=== PATIENT | male | born 1975 | race Caucasian/White ===

== ENCOUNTER 2016-12-28 16:55 | Emergency (ER) | payer MEDICAID ==
[~2016-12-28] VITALS: Ht 172.7 cm; Wt 84.4 kg
[~2016-12-28 16:55] MED LIST: KEPPRA500 MG PO; ZOLOFT50 MG PO
[2016-12-28 17:29] VITALS: BP 115/67
--- NOTE | 2016-12-28 20:32 | NUR ---
PT TAKEN TO OF2
--- NOTE | 2016-12-28 20:51 | NUR ---
41Y/M PATIENT PRESENTS TO ED WITH REQUESTS FOR MEDS REFILL . PT STATES REQUESTING FOR MEDICATION REFILL KEPPRA 500MG PO TID/ ZOLOFT MG PO QD .HX SEIZURE, DEPRESSION.DENIES N/V/D; SKIN IS PINK/WARM/DRY; AAOX4 WITH EVEN AND STEADY GAIT; LUNGS CLEAR BL; HR EVEN AND REGULAR; PT DENIES ANY FEVER, CP, SOB, OR COUGH AT THIS TIME; PATIENT STATES PAIN OF 0/10 AT THIS TIME; VSS; ER MD MADE AWARE OF PT STATUS.
--- NOTE | 2016-12-28 20:54 | NUR ---
Dr. Peña evaluating patient
[2016-12-28 21:06] VITALS: BP 115/67
--- NOTE | 2016-12-28 21:06 | NUR ---
Patient discharged with v/s stable. Written and verbal after care instructions given and explained. Patient alert, oriented and verbalized understanding of instructions. Ambulatory with steady gait. All questions addressed prior to discharge. ID band removed. Patient advised to follow up with PMD. Rx of ZOLOFT 50 MG, KEPRA 500 MG given. Patient educated on indication of medication including possible reaction and side effects. Opportunity to ask questions provided and answered.
== END 2016-12-28 21:06 | disposition home or self-care (01) ==
LOC: MED 16:55
DX: Z76.0 Encounter for issue of repeat prescription (principal); G40.909 Epilepsy, unspecified, not intractable, without status epilepticus; F41.9 Anxiety disorder, unspecified

== ENCOUNTER 2017-05-14 16:59 | Emergency (ER) | payer MEDICAID ==
[~2017-05-14] VITALS: Ht 177.8 cm; Wt 82.6 kg
[~2017-05-14 16:59] MED LIST changes: +KEP500 PO; -KEPPRA500 MG PO; +SERT50TA PO; -ZOLOFT50 MG PO
[2017-05-14 18:38] VITALS: BP 109/76
--- NOTE | 2017-05-14 18:44 | NUR ---
PT TO OVERFLOW.
--- NOTE | 2017-05-14 18:46 | NUR ---
PATIENT PRESENTS TO ED FOR MEDICATION REFILL . PT STATES HE RAN OUT OF HIS ZOLFT AND KEPPRA, AND HAS BEEN UNABLE TO SEE HIS PCP . DENIES N/V/D; SKIN IS PINK/WARM/DRY; AAOX4 WITH EVEN AND STEADY GAIT; LUNGS CLEAR BL; HR EVEN AND REGULAR; PT DENIES ANY FEVER, CP, SOB, OR COUGH AT THIS TIME; PATIENT STATES PAIN OF 0/10 AT THIS TIME; VSS; PATIENT POSITIONED IN OVERFLOW. ER MD MADE AWARE OF PT STATUS.
--- NOTE | 2017-05-14 18:47 | NUR ---
NAKUL Ruelas EVALUATING PT IN OVERFLOW.
[2017-05-14 18:59] VITALS: BP 109/76
--- NOTE | 2017-05-14 19:00 | NUR ---
Patient discharged with v/s stable. Written and verbal after care instructions given and explained. Patient alert, oriented and verbalized understanding of instructions. Ambulatory with steady gait. All questions addressed prior to discharge. ID band removed. Patient advised to follow up with PMD. Rx of ZOLOFT 50MG AND KEPPRA 500MG given. Patient educated on indication of medication including possible reaction and side effects. Opportunity to ask questions provided and answered.
== END 2017-05-14 19:00 | disposition home or self-care (01) ==
LOC: MED 16:59
DX: Z76.0 Encounter for issue of repeat prescription (principal); F41.9 Anxiety disorder, unspecified; F32.9 Major depressive disorder, single episode, unspecified; F17.210 Nicotine dependence, cigarettes, uncomplicated
CPT/HCPCS: 99283

== ENCOUNTER 2018-09-14 23:18 | Emergency (ER) | payer OTHER, MEDICAID ==
[~2018-09-14] VITALS: Ht 175.3 cm; Wt 83.0 kg
[2018-09-14 23:20] VITALS: BP 99/73
--- NOTE | 2018-09-14 23:20 | NUR ---
PT BIBSerjio ALS. TAKEN T BED 5
--- NOTE | 2018-09-14 23:35 | NUR ---
PT BIBA for witnessed siezure. PT is AAO x1, PT only oriented to self. PT is confused, does not no where he is. 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 No fever, RR symmetrical, non-labored. ER MD to see PT. Siezure precautions in place, suction equipment available in room. Will continue to monitor. Med HX: epilepsy
--- NOTE | 2018-09-15 00:09 | NUR ---
Dr. Taylor evaluating patient at bedside.
[2018-09-15] MEDS ORDERED: levETIRAcetam 500 MG TAB PO ONE (00:25)
[2018-09-15 00:59] VITALS: BP 109/59
--- NOTE | 2018-09-15 01:00 | NUR ---
Patient discharged with v/s stable. Written and verbal after care instructions given and explained. Patient verbalized understanding. Ambulatory with steady gait. All questions addressed prior to discharge. Advised to follow up with PMD.
== END 2018-09-15 01:00 | disposition home or self-care (01) ==
LOC: MED 23:18
DX: G40.909 Epilepsy, unspecified, not intractable, without status epilepticus (principal); Z79.899 Other long term (current) drug therapy
CPT/HCPCS: 99283

== ENCOUNTER 2019-01-09 10:45 | Emergency (ER) | payer OTHER, MEDICAID ==
[~2019-01-09] VITALS: Ht 172.7 cm; Wt 83.9 kg
--- NOTE | 2019-01-09 10:46 | NUR ---
PT BIBA BLS TO ER BED 10
--- NOTE | 2019-01-09 10:48 | NUR ---
SEIZURE PADS PLACED ON BED RAILS
--- NOTE | 2019-01-09 10:49 | NUR ---
pt placed on surveillance system monitor/pulse ox
[2019-01-09 10:50] VITALS: BP 119/74
--- NOTE | 2019-01-09 11:02 | NUR ---
BIBA W C/O 3 SEIZURES THIS MORNING. PER [facility], PTS GIRLFRIEND WITNESSED THE SEIZURES AND STATED THEY LASTED ABOUT 30 SECONDS EACH. PT DOES NOT RECALL THE SEIZURE ACTIVITY. PT DENIES FEVER OR RECENT ILLNESS/INJURY. FSBS 99, PT IS A&O X4. SEIZURE PRECAUTIONS IN PLACE.
--- NOTE | 2019-01-09 11:08 | NUR ---
PROVIDE PT WITH URINE CUP AND URINAL
--- NOTE | 2019-01-09 11:59 | NUR ---
urine collected and sent to lab
[2019-01-09 12:36] LABS: ANION GAP 15.7 (8-16); CARBON DIOXIDE 25.3 mmol/L (21-32); CREATININE 0.9 mg/dL (0.7-1.3)
[2019-01-09 12:47] LABS: BARBITURATE, URINE NEGATIVE ng/ml (NEG <=200); BENZODIAZEPINE, URINE NEGATIVE ng/mL (NEG <=200); CANNABINOID, URINE POSITIVE ng/mL (NEG <=50); COCAINE, URINE NEGATIVE ng/mL (NEG <=300); OPIATE, URINE NEGATIVE ng/mL (NEG <=2000); PHENCYCLIDINE SCREEN,URINE NEGATIVE ng/mL (NEG <=25)
[2019-01-09] MEDS ORDERED: NACL 0.9% 1,000 ML IV ONE (12:50)
[2019-01-09 13:19] VITALS: BP 125/72
--- NOTE | 2019-01-09 13:19 | NUR ---
Patient discharged with v/s stable. Written and verbal after care instructions given and explained. Patient alert, oriented and verbalized understanding of instructions. Ambulatory with steady gait. All questions addressed prior to discharge. ID band removed. Patient advised to follow up with PMD. Opportunity to ask questions provided and answered.
== END 2019-01-09 13:19 | disposition home or self-care (01) ==
LOC: MED 10:45
DX: G40.909 Epilepsy, unspecified, not intractable, without status epilepticus (principal); Z98.890 Other specified postprocedural states; Z79.899 Other long term (current) drug therapy; Z91.030 Bee allergy status
CPT/HCPCS: 36415; 80048; 80305; 99283; G0482; J7030

== ENCOUNTER 2019-03-24 22:03 | Emergency (ER) | payer OTHER, MEDICAID ==
[~2019-03-24] VITALS: Ht 172.7 cm; Wt 81.6 kg
[2019-03-24 22:05] VITALS: BP 132/82
--- NOTE | 2019-03-24 22:44 | NUR ---
44/M BIBA FROM [facility]. PER EMS, PT S/P SEIZURE 2 HRS AGO AT [facility]. PT WITH HEAD TRAUMA, 2CM LACERATION NOTED ON L SIDE OF HEAD, MINIMAL BLEEDING CONTROLLED BY PRESSURE DRESSING. PT DENIES N/V. NO ORAL/TONGUE TRAUMA. PT AOX4, GCS 15, PERRLA [place], SKIN NORMAL WARM AND DRY, RR EVEN AND UNLABORED. LUNG SOUNDS CLEAR BL. ALL EXTREMITIES +2 STRENGTH. HX SEIZURE, DEPRESSION RX KEPPRA 500MG BID (COMPLIANT), ZOLOFT
--- NOTE | 2019-03-24 22:44 | NUR ---
PT TAKEN TO BED 4
--- NOTE | 2019-03-24 23:14 | NUR ---
2CM LACERATION ON L SIDE OF HEAD CLEANSED, IRRIGATED, PRESSURE DRESSING REAPPLIED WITH GAUZE AND KERLIX.
--- NOTE | 2019-03-25 00:15 | NUR ---
DR DELEON AT BEDSIDE FOR MSE
[2019-03-25] MEDS ORDERED: LIDOCAINE/PRILOCAINE 2.5% 5 GM TUBE TP ONE (00:20)
--- NOTE | 2019-03-25 00:27 | NUR ---
EMLA CREAM APPLIED AND LEFT IN PLACE FOR NUMBING. 2CM LACERATION ON L SIDE OF HEAD CLEANSED, IRRIGATED, PRESSURE DRESSING REAPPLIED WITH GAUZE AND KERLIX.
[2019-03-25 00:32] VITALS: BP 117/75
--- NOTE | 2019-03-25 01:30 | NUR ---
PT WITH AN EPISODE OF 10 SECOND TONIC-CLONIC SEIZURE. NO INJURY/COMPLICATIONS NOTED. PT WITH BRIEF POST-ICTAL STATE BEFORE RETURNING TO BASELINE. PT AWAKE AND ALERT. VSS, PLACED ON O2 2L NC. DR DELEON MADE AWARE, PER NAKUL MCBRIDE NO NEED FOR ATIVAN AFTER SEIZURE, ORDERS PENDING. Addendum: 03/25/19 at 0144 by [email or web address] PT REMAINS IN MILD POST-ICTAL STATE, AOX1 (NAME)HITESH, ACTING APPROPRIATE, FOLLOWS DIRECTIONS.
[2019-03-25] MEDS ORDERED: LORazepam 2 MG/ML VIAL ONE (01:39)
[2019-03-25] MEDS ORDERED: levETIRAcetam 500 MG TAB PO ONE (01:40)
--- NOTE | 2019-03-25 02:05 | NUR ---
DR DELEON AT BEDSIDE FOR DERMABOND APPLICATION ON LACERATION ON L SIDE OF HEAD, APPROXIMATED WELL, PT TOLERATED WELL.
[2019-03-25 02:07] LABS: BASOPHILS % (AUTO) 0.2 % (0.0-2.0); EOSINOPHILS # (AUTO) 0.1 K/uL (0-0.4); EOSINOPHILS % (AUTO) 0.8 % (0.0-4.0); HEMOGLOBIN 15.5 g/dL (12.0-18.0); LYMPHOCYTES # (AUTO) 1.2 K/uL (2.0-11.5); LYMPHOCYTES % (AUTO) 11.6 % (20.5-51.1); MEAN CORPUSCULAR HEMOGLOBIN 30 pg (27-31); MEAN CORPUSCULAR HGB CONC 35 g/dL (33-37); MEAN CORPUSCULAR VOLUME 88.1 fL (80-94); MONOCYTES # (AUTO) 0.8 K/uL (0.8-1.0); MONOCYTES % (AUTO) 7.6 % (1.7-9.3); NEUTROPHILS # (AUTO) 7.9 K/uL (1.8-7.7); NEUTROPHILS % (AUTO) 79.8 % (42.2-75.2); PLATELET COUNT (AUTO) 197 K/uL (140-450); RED BLOOD CELL COUNT(AUTO) 5.11 MIL/uL (4.20-6.10); RED CELL DISTRIBUTION WIDTH 12.9 % (11.6-13.7)
[2019-03-25 02:14] LABS: WHITE BLOOD COUNT (AUTO) 9.9 K/uL (4.8-10.8)
--- NOTE | 2019-03-25 02:15 | NUR ---
PT REFUSED TO HAVE CT HEAD DESPITE EDUCATION, DR DELEON MADE AWARE.
[2019-03-25 02:23] LABS: ANION GAP 14.1 (8-16); CARBON DIOXIDE 26.6 mmol/L (21-32); POTASSIUM 3.7 mmol/L (3.5-5.1)
[2019-03-25 02:28] LABS: ALBUMIN 3.9 g/dL (3.4-5.0); MAGNESIUM 2.1 mg/dL (1.8-2.4); TOTAL BILIRUBIN 0.8 mg/dL (0.0-1.0)
--- NOTE | 2019-03-25 02:38 | NUR ---
Patient does not wish to proceed with medical care recommended by DR DELEON. Patient given information related to possible complications, up to and including , which could occur as a result of leaving hospital at this time. Patient verbalizes understanding of risks involved leaving against medical advice. Patient has signed AMA form.
== END 2019-03-25 02:38 | disposition home or self-care (01) ==
LOC: MED 22:03
DX: S01.01XA Laceration without foreign body of scalp, initial encounter (principal); R56.9 Unspecified convulsions; F32.9 Major depressive disorder, single episode, unspecified; F12.10 Cannabis abuse, uncomplicated; Z79.899 Other long term (current) drug therapy; X58.XXXA Exposure to other specified factors, initial encounter; Y93.89 Activity, other specified; Y92.89 Other specified places as the place of occurrence of the external cause; Y99.8 Other external cause status
CPT/HCPCS: 12001; 36415; 80053; 83735; 85025; 99283; J2060